=== PATIENT | male | born 1970 | race Caucasian/White ===

== ENCOUNTER 2019-06-01 11:27 | Outpatient (CLI) | payer BC, SELFPAY ==
--- NOTE | 2019-06-01 11:29 | ECG_ITS ---
Measurements Intervals [place] Rate: 82 P: 37 MI: 134 QRS: 55 QRSD: 107 T: 34 QT: 342 QTc: 401 Interpretive Statements SINUS RHYTHM DELAYED PRECORDIAL R/S TRANSITION BORDERLINE ECG Electronically Signed On 06-01-2019 11:53:36 WATER SOFTENER SERVICE SUPERVISOR by Anshul Flores D.O.
== END 2019-06-01 11:28 | disposition home or self-care (01) ==
LOC: ANHSURGERY 11:29
PROVIDERS: PCP Family Medicine; Visit Provider Surgery
DX: Z72.0 Tobacco use (principal); R94.31 Abnormal electrocardiogram [ECG] [EKG]
CPT/HCPCS: 93005

== ENCOUNTER 2019-06-11 00:06 | Day surgery (SDC) | payer BC, SELFPAY ==
[2019-05-28 15:49] VITALS: BMI 28.2
--- NOTE | 2019-06-11 07:24 | PM.SD ---
Same Day Admit/Disch: HPI History of Present Illness Chief complaint: Right Inguinal Hernia Narrative: Darren Rosa is a 48 year old male Who noticed right hip and groin pain back in January. Subsequently he noticed some bulging in the right groin area. He had a CT scan of the pelvis which showed a small right inguinal hernia containing fat. He was seen in the office and found to have a right inguinal hernia on exam. He is taken to surgery now for right inguinal hernia repair. [facility], [facility] Past Medical History Medical History Jackson esophagus History of blood transfusion History of stomach ulcers Ulcer Surgical History Surgical History Hx of cholecystectomy Hx of gastrostomy Family History Family History Father Hypertension Family history of diabetes mellitus in first degree relative Family history of coronary artery disease Cancer Other Cerebrovascular accident Family history of heart disease in male family member before age 55 Social History Social History Smoking status: Current every day smoker Second hand tobacco smoke exposure: Yes Additional smoking assessment comments: Smoke for 30 years Alcohol intake: current Substance use: never Additional living arrangements comments: Lisa Bray Additional occupation/education comments: [employer] Same Day Admit/Disch: Med Pre-admit Medications Home Medications Medication Instructions Recorded Confirmed Type butalbital 50 mg-acetaminophen 325 1 cap PO Q4H PRN 02/20/19 05/28/19 History mg-caffeine 40 mg-codeine 30 mg cap testosterone cypionate 100 mg/mL 100 mg IM WEEKLY #10 ml 04/06/19 06/11/19 Rx intramuscular oil ketorolac 10 mg PO Q6H 4 Days #16 tablet 06/11/19 Rx oxycodone-acetaminophen 0.5 - 1 tablet PO Q6H PRN #12 06/11/19 Rx tablet Exam Const: General: comfortable, no acute distress, alert and awake HENMT: Head: normocephalic and atraumatic Mouth: Yes Normal oral and palatal mucosa present Eyes: Conjunctivae: conjunctivae normal Pupils: Equal, round and reactive pupils present EOM: EOMs intact bilaterally Neck: Neck: normal visual inspection, no lymphadenopathy and nontender Resp: Effort & Inspection: normal respiratory effort Auscultation: clear to auscultation bilaterally Cardio: Rate: regular rate Rhythm: regular rhythm Heart sounds: no gallops, no murmurs and no rubs GI: Inspection: non-distended GI Palp: Yes Soft to palpation, No Tenderness to palpation present (GI), No Hepatomegaly present and No Splenomegaly present : Male General Exam: Yes hernia ( Right inguinal bulge, pulses with cough, reducible.) Penis: Yes normal penis Scrotum: scrotum normal Testes: Testes normal Skin: Lesions: no lesions Rashes: no rashes Neuro: General: no focal motor deficits and CN's II-XI intact bilaterally Cranial nerves: Yes Equal, round and reactive pupils present, Yes Bilaterally intact EOM present, Yes facial symmetry and Yes Midline tongue present Speech: normal speech Motor exam (neuro): 5/5 motor strength present throughout and Motor abnormalities not present Extrem: General: no clubbing, cyanosis or edema and edema Psych: Affect: normal affect Thought process: Normal thought process present Insight: Good insight present (Psych) DS: Summary Time Spent with Patient Time attestation: Total time spent providing and/or coordinating discharge services: DS: Diagnosis Admitting Diagnosis Admitting Diagnosis: Right inguinal hernia Discharge Diagnosis (1) Right inguinal hernia: Code(s): K40.90 - Unilateral inguinal hernia, without obstruction or gangrene, not specified as recurrent Status: Chronic Assessment and Plan: after discussion,
[2019-06-11 08:38] VITALS: BP 157/92; PULSE 81; RESP 16; TEMP 36.9; O2SAT 98
[2019-06-11] MEDS: LACTATED RINGERS 1,000 ML 30 ML IV CONT ×2 (08:55→11:49)
--- NOTE | 2019-06-11 09:12 | WPDANESEPPF ---
Anes - Initial Pre Proc Eval Procedure: Operation Date: 06/11/19 10:30 Proposed Procedures p Right Inguinal Hernia Repair - Mau Salgado MD Date/Time: 06/11/19 09:12 Surgeon: Mau Salgado MD Pre Op Diagnosis: Right Inguinal Hernia Patient Data Age: 48 Gender: M Height: 6 ft Weight: 95.5 kg Last Vital Signs Temp 36.9 C 06/11/19 08:38 Pulse 81 06/11/19 08:38 Resp 16 06/11/19 08:38 BP 157/92 H 06/11/19 08:38 Pulse Ox 98 06/11/19 08:38 Allergies Allergy/AdvReac Type Severity Reaction Status Date / Time No Known Allergies Allergy Verified 06/11/19 08:43 Home Medications Medication Instructions Recorded Confirmed Type butalbital 50 mg-acetaminophen 325 1 cap PO Q4H PRN 02/20/19 05/28/19 History mg-caffeine 40 mg-codeine 30 mg cap testosterone cypionate 100 mg/mL 100 mg IM WEEKLY #10 ml 04/06/19 06/11/19 Rx intramuscular oil Patient hx anesthesia problems: none Family hx anesthesia problems: none PMFSH Past Medical History Medical History Jackson esophagus History of blood transfusion History of stomach ulcers Ulcer Surgical History Surgical History Hx of cholecystectomy Hx of gastrostomy Family History Family History Father Hypertension Family history of diabetes mellitus in first degree relative Family history of coronary artery disease Cancer Other Cerebrovascular accident Family history of heart disease in male family member before age 55 Social History Social History Smoking status: Current every day smoker Second hand tobacco smoke exposure: Yes Additional smoking assessment comments: Smoke for 30 years Alcohol intake: current Substance use: never Additional living arrangements comments: Lisa Bray Additional occupation/education comments: [employer] Anes - Eval Final PreProcedure Day of Procedure 06/11/19 09:12 Patient weight: overweight Heart: regular rate and rhythm Lungs: decreased breath sounds Airway: Mallampati scale class II Neurological: alert and oriented Last oral intake: >/= 8 hours ASA classification: III Emergent: no Anesthetic plan: proceed Anesthesia type and monitoring: general GIVS and standard monitoring Informed Consent: The patient's anesthetic plan and its attendant risks and benefits were discussed with the patient/family/POA. Questions were solicited and answers provided to the satisfaction of the patient/family/POA.
[2019-06-11] MEDS: ceFAZolin 2 GM/D5W 50 ML 2 GM/50 ML BAG IVPB (10:33)
[2019-06-11] MEDS: KETOROLAC 30 MG/ML VIAL (*BKC) IV PUSH (10:54)
--- NOTE | 2019-06-11 11:46 | PM.PROC ---
Procedure Note - Detailed Date of procedure: 06/11/19 Pre-op diagnosis: Right Inguinal Hernia Right inguinal hernia Post-op diagnosis: other (Direct hernia) Procedure performed: Repair of Right inguinal hernia Description of procedure: The patient was taken to surgery and IV sedation was administered. The right groin and genitalia were prepped and draped. Proposed incision was marked on the skin. Local was infiltrated into the skin and the deeper subcutaneous tissues. Incision was made and deepened through the subcutaneous. Crossing veins were cauterized and divided. Dissection was carried through Osiris's fascia down to the external oblique aponeurosis. The aponeurosis was exposed as was the external ring. Additional local anesthesia was infiltrated deep to the aponeurosis in the area of the spermatic cord and inguinal canal contents. The aponeurosis was opened laterally and extended medially through the external ring. The leaves of the aponeurosis were dissected free from the spermatic cord. The ileoinguinal nerve was carefully preserved throughout the dissection and was left attached to the spermatic cord. The cord was then mobilized medially on a Pablo drain. The cord was dissected back to the internal ring. Dissection was then carried out the hernia sac from the cord. This was a direct hernia with a wide base. It occupied most of the direct space. It was dissected back to its neck. I also dissected in the spermatic cord looking for an indirect hernia. None was found. I proceeded with a Bassini repair to reconstruct the entire inguinal canal floor. The repair was done with interrupted 0 Ethibond suture. This started medially, suturing the pubic tubercle to the transversalis fascia. Then, proceeding laterally, the transversalis fascia was sutured to the reflection of the inguinal ligament. The internal ring was reconstructed such that it would barely admit the tip of a clamp. The cord and ileoinguinal nerve were then placed back in the inguinal canal. The external oblique aponeurosis was closed with interrupted 3 0 Vicryl suture. Osiris's fascia was closed with interrupted 3 0 Vicryl suture. The subcutaneous was closed with interrupted 4 0 Vicryl suture. Four 0 Vicryl subcuticular skin sutures were placed. The skin was closed finally with a running 4 0 Monocryl skin suture. The wound was dressed with Exofin surgical adhesive. The patient was awakened and taken to recovery in good condition. Sponge and needle counts were correct x2. Anesthesia: MAC and local (0.5% Marcaine with Exparel) Surgeon: Mau Salgado MD Auto Customize Painter: Keiko Aldana Estimated blood loss (mL): 5 Drains: No Packing: No Pathology: none sent Complications: None Condition: stable Disposition: PACU Findings: Direct inguinal hernia.
[2019-06-11 11:49] VITALS: BP 146/87; PULSE 78; RESP 16; O2SAT 98
[2019-06-11 12:15] VITALS: BP 147/73; PULSE 74; RESP 16
[2019-06-11 12:35] VITALS: BP 164/57; PULSE 76; RESP 16
== END 2019-06-11 12:35 | disposition home or self-care (01) ==
PROVIDERS: PCP Family Medicine; Visit Provider Surgery
PROC: (CPT 49505; principal; 2019-06-11 10:30)
DX: K40.90 Unilateral inguinal hernia, without obstruction or gangrene, not specified as recurrent (principal); G47.33 Obstructive sleep apnea (adult) (pediatric); K21.9 Gastro-esophageal reflux disease without esophagitis; Z87.11 Personal history of peptic ulcer disease; Z72.0 Tobacco use
CPT/HCPCS: 49505; A9270; C9290; J0131; J0690; J1100; J1885; J2250; J2405; J2704; J3010; J7120

== ENCOUNTER 2020-02-23 11:20 | Outpatient (CLI) | payer BC, SELFPAY ==
--- NOTE | ~2020-02-23 | XR_ITS ---
EXAMINATION: XR knee RT 3V DATE: 02/23/2020 11:37 INDICATION: Right knee pain. TECHNIQUE: 3 views of right knee were obtained. COMPARISON: None. FINDINGS: Bone alignment is normal. No fracture. There is mild osteoarthritis of medial and patellofe moral compartments characterized by tiny marginal osteophytes. No knee joint effusion. IMPRESSION: 1. Mild right knee osteoarthritis. Reviewed, dictated and finalized at location A. [facility] [employer]
== END 2020-02-23 11:21 | disposition home or self-care (01) ==
PROVIDERS: PCP Family Medicine; Visit Provider Nurse Practitioner Family
DX: M25.561 Pain in right knee (principal); M17.11 Unilateral primary osteoarthritis, right knee
CPT/HCPCS: 73562

== ENCOUNTER 2020-03-02 07:43 | Outpatient (CLI) | payer BC, SELFPAY ==
--- NOTE | ~2020-03-02 | MR_ITS ---
EXAMINATION: MR knee RT wo con DATE: 03/02/2020 08:50 INDICATION: Right knee pain. TECHNIQUE: Magnetic resonance imaging (MRI) of the right knee was performed without intravenous contr ast. Sequences included axial PD-weighted FS FSE, coronal PD-weighted FSE and PD-weighted FS FSE, sag ittal PD-weighted FSE, and sagittal T2-weighted FS FSE. COMPARISON: Right knee radiographs 02/23/2020 FINDINGS: Medial compartment: Medial meniscus is normal. Medial compartment cartilage is normal. Lateral compartment: Lateral meniscus is normal. There is cartilage surface irregularity of tibial condyle and femoral con dyle. Patellofemoral compartment: There is deep partial thickness cartilage loss of patellar medial facet with mild subchondral edema-l lorena marrow signal intensity. There is cartilage surface irregularity of patellar lateral facet and tr ochlea. Ligaments and tendons: The anterior and posterior cruciate ligaments are normal. There is a sprain of medial collateral liga ment characterized by thickening and increased signal intensity proximally and surrounding edema. The re are changes of prior sprain of fibular collateral ligament characterized by increased signal inten sity. There is mild patellar tendinopathy. Fluid: There is a small knee joint effusion. There is edema of the suprapatellar fat pad. There is mild prep atellar and superficial infrapatellar bursitis. IMPRESSION: 1. Moderate chondrosis of patellofemoral compartment and mild chondrosis of lateral compartment. 2. Grade 2 sprain of medial collateral ligament. 3. Small knee joint effusion. Reviewed, dictated and finalized at location A. [facility] IMPRESSION: 1. Moderate chondrosis of patellofemoral compartment and mild chondrosis of lat eral compartment. 2. Grade 2 sprain of medial collateral ligament. 3. Small knee joint effusion.
== END 2020-03-02 07:44 | disposition home or self-care (01) ==
PROVIDERS: PCP Family Medicine; Visit Provider Nurse Practitioner Family
DX: M25.361 Other instability, right knee (principal); S83.411A Sprain of medial collateral ligament of right knee, initial encounter; M25.461 Effusion, right knee
CPT/HCPCS: 73721

== ENCOUNTER 2020-09-26 10:02 | Outpatient (CLI) | payer BC, SELFPAY ==
--- NOTE | ~2020-09-26 | US_ITS ---
EXAMINATION: US right upper quadrant DATE: 09/26/2020 11:06 INDICATION: Other specific abnormal findings of blood chemistry. TECHNIQUE: Multiple grayscale and Doppler ultrasound images of the abdomen were obtained. COMPARISON: CT abdomen and pelvis 09/04/2015 FINDINGS: The visualized portions of the head of the pancreas are normal. There is diffuse hepatic st eatosis. No liver surface nodularity. There is normal flow in main portal vein. The gallbladder is ab sent. The common duct is normal and measures 6 mm. IMPRESSION: 1. Diffuse hepatic steatosis. Reviewed, dictated and finalized at location A.
== END 2020-09-26 10:03 | disposition home or self-care (01) ==
PROVIDERS: PCP Family Medicine; Visit Provider Family Medicine
DX: R79.89 Other specified abnormal findings of blood chemistry (principal); K76.0 Fatty (change of) liver, not elsewhere classified
CPT/HCPCS: 76705

== ENCOUNTER → 2021-09-01 02:15 | Outpatient (CLI) | payer BC, SELFPAY ==
[2021-09-01 12:33] LABS: Influenza A QL RT-PCR Negative (Negative); Influenza B QL RT-PCR Negative (Negative); SARS-CoV-2 RNA PCR Negative
== END ==
PROVIDERS: PCP Family Medicine; Visit Provider Nurse Practitioner Family
DX: Z20.822 Contact with and (suspected) exposure to COVID-19 (principal)
CPT/HCPCS: 87502; C9803; U0003; U0005

== ENCOUNTER 2021-10-12 01:22 | Day surgery (SDC) | payer BC, SELFPAY ==
[2021-10-06 10:36] VITALS: BMI 27.8
--- NOTE | 2021-10-06 10:44 | PC.NURSE ---
Report to the Outpatient Waiting Room, entrance under the green pavilion located off [facility], at time 1100 on date 10/12/21. OR Time: 1300. - You and your visitor will be asked a series of questions to screen for COVID 19 for your protection. - Only one visitor is allowed at this time. - The patient visitor is requested to leave or wait in car when not with patient. - A mask is required within the hospital. Patients may have clear liquids (water, carbonated beverages, clear teas, apple juice) until 3 hours prior to surgery with a maximum of 20 ounces. - No food from midnight until time of surgery Take the following medications with a SIP of water the morning of surgery: NONE Medications to discontinue per physician: N/A Date to take last dose: N/A Please no make-up, nail british, hairspray, perfume, deodorant, or body powder the day of surgery. No jewelry (including any body piercings) or valuables the day of surgery, leave them at home. Please take a shower or bath the night before, or the morning of, surgery with an antibacterial soap. Wear comfortable, loose fitting clothing. HIBICLENS SHOWER - Jewelry must be removed prior to entering the operating room. Rings and piercings that are not removed may be cut off. - The hospital will not accept responsibility for valuables. - Please leave all valuables, including medications, at home the day of surgery. If you are going home after surgery, a licensed truck driver salesperson must drive you home. - NO public transportation without another adult. - We recommend that an adult stay with you for 24 hours following discharge. - We also recommend that you do not drive, make important decision, drink alcoholic beverages, or take any drugs that were not prescribed by your health care provider for at least 24 hours after your discharge time. Follow any additional instructions given to you from your surgeon. If you or anyone in your household have experienced Covid symptoms in the past week, please notify your surgeon or the nurse liaison at the phone number below for possible testing. Telephone instructions given to PT - BRISA LEWIS and asked if any additional questions and then verbalized understanding. Patient advised to call surgeon office or pre surgery nurse liaison [phone] if any additional questions.
--- NOTE | 2021-10-11 13:32 | WPDANESEPPF ---
Anes - Initial Pre Proc Eval Procedure: Operation Date: 10/12/21 12:00 Proposed Procedures p Repair Periumbilical Incisional Hernia with Mesh - Mau Salgado MD Date/Time: 10/11/21 13:32 Surgeon: Mau Salgado MD Pre Op Diagnosis: incisional hernia Patient Data Age: 51 Gender: M Height: 1.83 m Weight: 93 kg Allergies Allergy/AdvReac Type Severity Reaction Status Date / Time No Known Allergies Allergy Verified 10/12/21 09:48 Home Medications Medication Instructions Recorded Confirmed Type needle (disp) 23 gauge 23 gauge x #10 ea 03/13/21 10/06/21 Rx 1 (BD PrecisionGlide Non-Sterile) syringe with needle 3 mL 20 gauge See Rx Instructions .Route 03/13/21 10/06/21 Rx x 1 (BD Luer-Carolyn Syringe) .COMPLEX #10 ea testosterone cypionate 200 mg/mL 200 mg IM WEEKLY #10 mL 10/05/21 10/12/21 Rx intramuscular oil Patient hx anesthesia problems: none Family hx anesthesia problems: none Results Review: All pre-operative results and documents have been reviewed as part of the pre-operative evaluation. [facility] Past Medical History Medical History (Updated 10/11/21 @ 13:33 by Albino Silva DO) Jackson esophagus Hepatic steatosis History of blood transfusion History of stomach ulcers Mixed hyperlipidemia MORRIS (obstructive sleep apnea) Ulcer Surgical History Surgical History History of right inguinal hernia repair 06/11/2019 Hx of cholecystectomy Hx of gastrostomy Family History Family History Father Hypertension Family history of diabetes mellitus in first degree relative Family history of coronary artery disease Cancer Other Cerebrovascular accident Family history of heart disease in male family member before age 55 Social History Social History Social History: Single Smoking packs per day: 1 Smoking cigarettes per day: 20.0 Years smoked: 30 Smoking pack-years: 30.00 Smoking status: Current every day smoker Tobacco type: cigarettes Second hand tobacco smoke exposure: Yes Additional smoking assessment comments: Smoke for 30 years Alcohol intake: current Drinks per week: 24 Alcohol use details: occasional Substance use: never Substance use type: does not use Living arrangements: alone Additional living arrangements comments: Lisa Ramirezkelson Additional occupation/education comments: [employer] Gender identity (if verbalized by the patient): Male Sexual Orientation (if Verbalized by the Patient): Straight or Heterosexual Spiritual care concerns: No Anes - Eval Final PreProcedure Day of Procedure 10/11/21 13:32 Patient weight: overweight Heart: regular rate and rhythm Lungs: clear to auscultation Airway: Mallampati scale class II Neurological: alert and oriented Last oral intake: >/= 8 hours ASA classification: III Emergent: no Anesthetic plan: proceed Anesthesia type and monitoring: general GIVS and standard monitoring Results Review: All pre-operative results and documents have been reviewed as part of the pre-operative evaluation. Informed Consent: The patient's anesthetic plan and its attendant risks and benefits were discussed with the patient/family/POA. Questions were solicited and answers provided to the satisfaction of the patient/family/POA.
[2021-10-12] MEDS: ACETAMINOPHEN 500 MG TABLET 1000 MG PO (09:50)
[2021-10-12] MEDS: KETOROLAC 15 MG/ML VIAL (*BKC) IV PUSH (10:13)
[2021-10-12] MEDS: LACTATED RINGERS 1,000 ML 30 ML IV CONT (10:13)
[2021-10-12 10:14] VITALS: BP 147/92; PULSE 72; RESP 16; TEMP 37; O2SAT 98
--- NOTE | 2021-10-12 11:52 | WPDHPUPDATE1 ---
History and Physical Update Update Date/Time: 10/12/21 11:52 History and Physical has been reviewed, including an updated exam of the patient. There are NO changes in the patient's condition. Risks, benefits, and alternatives have been discussed and questions answered. Patient agrees to proceed with procedure.
[2021-10-12] MEDS: ceFAZolin 2 GM/D5W 50 ML 2 GM/50 ML BAG IVPB (12:02)
[2021-10-12] MEDS: BUPIVACAINE/EPINEPHRINE 0.25% 50 ML VIAL INFILTRATE (12:25)
[2021-10-12 13:05] VITALS: BP 139/82; PULSE 73; RESP 16; O2SAT 98
--- NOTE | 2021-10-12 13:12 | P.OP_ITS ---
Procedure Note - Detailed Date of Procedure 10/12/21 Pre-op Diagnosis incisional hernia Post-op Diagnosis Same Procedure Performed Repair of ventral incisional hernia with mesh Surgeon Mau Salgado MD Supervisor Sewing Room Bonita [employer]MENTS BUSINESS INFORMATION ANALYST Anesthesia General (G IV S) and Local (0.25% bupivacaine with epinephrine) Indications Patient underwent laparoscopic gastric resection for ulcer disease at an outside hospital. He had an extraction site incisional hernia just above the umbilicus in the midline. He is taken to surgery now for repair Findings Hernia defect was about 1 cm in diameter. I was able to put a finger in the abdomen and check the rest of the incision scar. I was not able to palpate any additional hernias. Description of Procedure Patient was taken to surgery and anesthesia was introduced. The abdomen is prepped and draped. Local anesthesia was infiltrated over the old scar in the abdominal midline just above the umbilicus. The subcu and fascia were infiltrated as well. Incision was made at the lower 3/4 of the old incision. Dissection was carried down through the subcutaneous. The hernia sac was found it was carefully dissected free from the subcutaneous tissue. A couple of old Ethibond suture were removed from the previous repair at the edges of the hernia defect. The sac was dissected back to the fascial defect. Additional local was infiltrated. Hernia sac was amputated and discarded. A small 1 cm defect was left in place. The defect was oriented transversely and was even smaller in a craniocaudad dimension, about 3 mm. I was able to place a finger in the abdomen and checked for any additional hernias. I was not able to feel any other hernias. A 6.[address] mesh quinault was chosen. It was folded and placed in the defect. It was centered appropriately. Cranial and caudal transfascial sutures were placed with 0 Ethibond. These sutures were placed in such a fashion as they would advance the edges of the hernia defect towards 1 another when they were tied. Time the sutures had the desired effect. I then cut the straps to the Ventralex ST mesh. The defect itself was closed with [id number] mattress sutures of 0 Ethibond. Each of these sutures incorporated bit of mesh as well. Additional local was infiltrated all around the area of the repair. The subcutaneous was then closed with interrupted 3-0 Vicryl suture. The skin was closed with 4-0 Vicryl subcuticular interrupted suture. The wound was dressed with Exofin surgical adhesive. Patient was awakened and taken to room outpatient surgery in good condition. Sponge needle counts were correct x2. Implants Ventralex ST hernia mesh 6.4 cm Estimated Blood Loss -5 Drains No Packing No Pathology None sent Complications No immediate complications Condition Stable Disposition Same day [facility] Billing Surgery - Charge Forward: Surgery Billing (Repair ventral incisional hernia with mesh)
[2021-10-12 13:35] VITALS: BP 155/108; PULSE 69; RESP 16
== END 2021-10-12 13:55 | disposition home or self-care (01) ==
PROVIDERS: PCP Family Medicine; Visit Provider Surgery
PROC: (CPT 49560; principal; 2021-10-12 12:00)
DX: K43.2 Incisional hernia without obstruction or gangrene (principal); Z87.11 Personal history of peptic ulcer disease; Z90.3 Acquired absence of stomach [part of]; G47.33 Obstructive sleep apnea (adult) (pediatric); K76.0 Fatty (change of) liver, not elsewhere classified; E78.2 Mixed hyperlipidemia; F17.210 Nicotine dependence, cigarettes, uncomplicated
CPT/HCPCS: 49560; 49568; A9270; C1781; J0690; J1100; J1170; J1885; J2250; J2405; J2704; J3010; J7120

== ENCOUNTER 2021-10-28 01:20 | Emergency (ER) | payer BC, SELFPAY ==
[2021-10-28 01:21] VITALS: BP 152/85; PULSE 87; RESP 18; TEMP 36.1; O2SAT 98
[2021-10-28 01:28] VITALS: BP 136/82; PULSE 85; RESP 20; TEMP 36.4; O2SAT 100
--- NOTE | 2021-10-28 01:34 | ED.SKABFB ---
HPI - Skin/Abscess/Foreign Bdy General Chief complaint: Skin/Abscess/Foreign Body Stated complaint: left ankle insect bite Time Seen by Provider: 10/28/21 01:26 History of Present Illness HPI narrative: 51-year-old male presents the emergency room for evaluation of an insect bite to his left foot. Patient states that approximately 230 this afternoon he was stung by an insect. Patient noted swelling to his foot accompanied with itching. Related Data Allergies Allergy/AdvReac Type Severity Reaction Status Date / Time No Known Allergies Allergy Verified 10/26/21 09:20 Review of Systems Review of Systems: CONSTITUTIONAL: Denies fever, chills, or sweats. EYES: Denies visual changes, redness, or discharge. ENT: Denies rhinorrhea, congestion, sore throat, or otalgia. CARDIOVASCULAR: Denies chest pain, palpitations, or edema. RESPIRATORY: Denies cough or dyspnea. GASTROINTESTINAL: Denies abdominal pain, nausea, vomiting, or diarrhea. GENITOURINARY: Denies dysuria or hematuria. SKIN: Insect bite left ankle MUSCULOSKELETAL: Denies back pain, joint pain, or myalgia. NEUROLOGIC: Denies headache, numbness, dizziness, or weakness. PSYCHIATRIC: Denies anxiety or depression. [facility] Past Medical History Medical History Jackson esophagus Hepatic steatosis History of blood transfusion History of stomach ulcers Mixed hyperlipidemia MORRIS (obstructive sleep apnea) Ulcer Surgical History Surgical History History of right inguinal hernia repair 06/11/2019 Hx of cholecystectomy Hx of gastrostomy Family History Family History Father Hypertension Family history of diabetes mellitus in first degree relative Family history of coronary artery disease Cancer Other Cerebrovascular accident Family history of heart disease in male family member before age 55 Social History Social History Social History: Single Smoking packs per day: 1 Smoking cigarettes per day: 20.0 Years smoked: 30 Smoking pack-years: 30.00 Smoking status: Current every day smoker Tobacco type: cigarettes Second hand tobacco smoke exposure: Yes Additional smoking assessment comments: Smoke for 30 years Alcohol intake: current Drinks per week: 24 Alcohol use details: occasional Substance use: never Substance use type: does not use Additional living arrangements comments: Lisa Bray Additional occupation/education comments: [employer] Gender identity (if verbalized by the patient): Male Sexual Orientation (if Verbalized by the Patient): Straight or Heterosexual Spiritual care concerns: No Exam Narrative: GENERAL: Well-appearing, well-nourished, no physical limitations, and in no acute distress. HEAD: Normocephalic, atraumatic. EYES: Conjunctivae normal, PERRLA and EOMI. CHEST: Clear to auscultation. No respiratory distress. No wheezes rales or rhonchi. No tenderness. HEART: Regular rate and rhythm. No murmur heard. Normal peripheral pulses. EXTREMITIES: Normal range of motion. No edema. No clubbing or cyanosis SKIN: Left foot: Santosh noted to the lateral malleolus, diffuse soft tissue swelling to the left foot. Distal pulses are present. No erythema, no lymphangitis NEURO: No focal deficits. Alert and oriented x3. MAEW. CN's II-XI intact bilaterally, normal gait PSYCH: Cooperative. Normal mood and affect. Course Vital Signs Vital signs: Vital Signs Temperature 36.1 C L 10/28/21 01:21 Pulse Rate 87 10/28/21 01:21 Respiratory Rate 18 10/28/21 01:21 Blood Pressure 152/85 H 10/28/21 01:21 Pulse Oximetry 98 10/28/21 01:21 Oxygen Delivery Room Air 10/28/21 01:21 Temperature 36.4 C 10/28/21 01:28 Pulse Rate 85 10/28/21 01:28 Respiratory Rate 20 10/28/21 01:28
[2021-10-28] MEDS: FAMOTIDINE 20 MG/2 ML VIAL IV PUSH (01:48)
[2021-10-28] MEDS: diphenhydrAMINE HCl INJ 50 MG/ML VIAL IV PUSH (01:48)
[2021-10-28] MEDS: methylPREDNISolone SOD SUCC 125 MG VIAL IV PUSH (01:48)
[2021-10-28] MEDS: ACETAMINOPHEN 500 MG TABLET 1000 MG PO (02:08)
== END 2021-10-28 02:27 | disposition home or self-care (01) ==
LOC: ANHED 01:42
PROVIDERS: Emergency Provider Nurse Practitioner Family; PCP Family Medicine
DX: S90.862A Insect bite (nonvenomous), left foot, initial encounter (principal); K22.70 Barrett's esophagus without dysplasia; E78.2 Mixed hyperlipidemia; G47.33 Obstructive sleep apnea (adult) (pediatric); F17.210 Nicotine dependence, cigarettes, uncomplicated; W57.XXXA Bitten or stung by nonvenomous insect and other nonvenomous arthropods, initial encounter
CPT/HCPCS: 96374; 96375; 99284; A9270; J1200; J2930

== ENCOUNTER 2021-11-08 10:17 | Emergency (ER) | payer BC, SELFPAY ==
[2021-11-08 10:25] VITALS: BP 131/82; PULSE 82; RESP 16; TEMP 36.8; O2SAT 100
--- NOTE | 2021-11-08 10:33 | ED.ABDPAIN ---
HPI - Abdominal Pain General Chief Complaint: Abdominal Pain Stated Complaint: Abdominal Pain Time Seen by Provider: 11/08/21 10:33 Source: patient and RN notes reviewed History of Present Illness HPI narrative: Patient is a 51-year-old male who presents the urgent care with complaints of abdominal cramping, diarrhea. Patient states that on Saturday it started after eating fish at [place]. Patient states that he was also vomiting on Saturday with a low-grade fever for 2 days which is since resolved. Patient denies of any nausea or vomiting at this time. States he has had approximately 12-15 loose stools in the last 24 hours. Patient reports of a headache today and believes he may be dehydrated. Patient has been increasing his water intake and using Imodium. Denies of any history of abdominal issues. Denies any urinary symptoms with the exception of right flank pain. No acute distress noted. Patient aware of the plan of care. Some parts of this dictation were generated by voice recognition software and may contain typographical and/or grammatical inaccuracies. Related Data Allergies Allergy/AdvReac Type Severity Reaction Status Date / Time No Known Allergies Allergy Verified 11/08/21 10:41 Review of Systems Review of Systems: CONSTITUTIONAL: Denies fever, chills, or sweats. EYES: Denies visual changes, redness, or discharge. ENT: Denies rhinorrhea, congestion, sore throat, or otalgia. CARDIOVASCULAR: Denies chest pain, palpitations, or edema. RESPIRATORY: Denies cough or dyspnea. GASTROINTESTINAL: Reports of abdominal cramping, nausea, vomiting which is since resolved and consistent diarrhea GENITOURINARY: Denies dysuria or hematuria. SKIN: Denies rash or itching. MUSCULOSKELETAL: Reports of left flank pain NEUROLOGIC: Denies headache, numbness, or weakness. All other systems reviewed are negative, except as documented in HPI. [facility] Past Medical History Medical History Jackson esophagus Hepatic steatosis History of blood transfusion History of stomach ulcers Mixed hyperlipidemia MORRIS (obstructive sleep apnea) Ulcer Surgical History Surgical History History of right inguinal hernia repair 06/11/2019 Hx of cholecystectomy Hx of gastrostomy Family History Family History Father Hypertension Family history of diabetes mellitus in first degree relative Family history of coronary artery disease Cancer Other Cerebrovascular accident Family history of heart disease in male family member before age 55 Social History Social History Social History: Single Smoking packs per day: 1 Smoking cigarettes per day: 20.0 Years smoked: 30 Smoking pack-years: 30.00 Smoking status: Current every day smoker Tobacco type: cigarettes Second hand tobacco smoke exposure: Yes Additional smoking assessment comments: Smoke for 30 years Alcohol intake: current Drinks per week: 24 Alcohol use details: occasional Substance use: never Substance use type: does not use Additional living arrangements comments: Lisa Bray Additional occupation/education comments: [employer] Gender identity (if verbalized by the patient): Male Sexual Orientation (if Verbalized by the Patient): Straight or Heterosexual Spiritual care concerns: No Comments At the time of my signature, I reviewed and agree with the nursing past medical, surgical, social, and family history. There is no relevant family history pertinent to the patient complaint. Exam Narrative: GENERAL: This is a well-nourished, well-developed patient, in no apparent distress. HEAD: normocephalic, atraumatic. EYES: PERRL. Sclera clear/white. Vision is grossly intact. EARS: External ears normal NOSE: External nose
== END 2021-11-08 11:27 | disposition home or self-care (01) ==
PROVIDERS: Emergency Provider Nurse Practitioner Family; PCP Family Medicine
DX: R19.7 Diarrhea, unspecified (principal); F17.210 Nicotine dependence, cigarettes, uncomplicated; K22.70 Barrett's esophagus without dysplasia; E78.2 Mixed hyperlipidemia; G47.33 Obstructive sleep apnea (adult) (pediatric); K76.0 Fatty (change of) liver, not elsewhere classified
CPT/HCPCS: 81003; 99212; G0463

== ENCOUNTER 2021-11-10 15:09 | Outpatient (CLI) | payer BC, SELFPAY ==
[2021-11-10 18:52] LABS: Toxigenic C. Diff NEGATIVE (NEGATIVE)
== END 2021-11-10 15:10 | disposition home or self-care (01) ==
LOC: ANHLAB 15:11
PROVIDERS: PCP Family Medicine; Visit Provider Physician Assistant
DX: R19.7 Diarrhea, unspecified (principal)
CPT/HCPCS: 87045; 87077; 87177; 87186; 87209; 87427; 87493; 89055

== ENCOUNTER 2022-05-10 07:15 | Emergency (ER) | payer BC, SELFPAY ==
--- NOTE | ~2022-05-10 | CT_ITS ---
CT Abdomen and Pelvis with contrast. History: Abdominal pain. Spiral CT of the abdomen and pelvis was performed after the administration of intravenous contrast. 1 00 cc of Omnipaque 350 was administered intravenously without complication. Dose reduction technique was used on this scan by utilizing automated exposure control and iterative reconstruction technique. The dose-length product (DLP) was 535.97 mGy-cm. COMPARISON: 04/09/2019 Findings: Scans through the lung bases demonstrate mild atelectatic change. The liver, spleen, pancreas, adrenals and kidneys are within normal limits. Cholecystectomy clips are present. There are endovascular coils in the region of the pancreatic head. No evidence of aortic an eurysm. No lymphadenopathy is seen. There is no evidence of bowel obstruction. There is no evidence to suggest acute appendicitis or dive rticulitis. Images through the pelvis were performed. Urinary bladder unremarkable. Prostate gland and seminal ve sicles are unremarkable. No ascites is seen. Impression: No acute abnormality seen. Endovascular coils near the pancreatic head. Correlate with prior procedural history. Reviewed, dictated and finalized at [facility]. [employer] Impression: No acute abnormality seen. Endovascular coils near the pancreatic head. Correlate with prior procedural hi story.
[2022-05-10 07:20] VITALS: BP 185/89; PULSE 79; RESP 15; TEMP 36.9; O2SAT 100
--- NOTE | 2022-05-10 07:27 | ED.ABDPAIN ---
HPI - Abdominal Pain General Chief Complaint: Abdominal Pain Stated Complaint: Pain in lower abdomen Time Seen by Provider: 05/10/22 07:27 Source: patient Mode of arrival: ambulatory Limitations: no limitations History of Present Illness HPI narrative: 51 years old white male drove himself to the emergency room complaining of intermittent dull aching lower abdominal for the last 2 months. Worse when he bends over, nothing make it better. 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 Patient on testosterone , no other medications. He smokes cigarettes, drinks alcohol. Related Data Allergies Allergy/AdvReac Type Severity Reaction Status Date / Time sumatriptan AdvReac Intermediate Chest Pain Verified 05/10/22 07:34 Review of Systems Review of Systems: All systems reviewed & are unremarkable except as noted in HPI and below PMFSH Past Medical History Medical History Jackson esophagus Hepatic steatosis History of blood transfusion History of stomach ulcers Mixed hyperlipidemia MORRIS (obstructive sleep apnea) Ulcer Surgical History Surgical History H/O hernia repair Repair of ventral incisional hernia with mesh 10/12/21 History of right inguinal hernia repair 06/11/2019 Hx of cholecystectomy Hx of gastrostomy Family History Family History Father Hypertension Family history of diabetes mellitus in first degree relative Family history of coronary artery disease Cancer Other Cerebrovascular accident Family history of heart disease in male family member before age 55 Social History Social History Social History: Single Smoking packs per day: 1 Smoking cigarettes per day: 20.0 Years smoked: 30 Smoking pack-years: 30.00 Smoking status: Current every day smoker Tobacco type: cigarettes Second hand tobacco smoke exposure: Yes Additional smoking assessment comments: Smoke for 30 years Alcohol intake: current Drinks per week: 24 Alcohol use details: occasional Substance use: never Substance use type: does not use Living arrangements: alone Additional living arrangements comments: Lisa Bray Occupation/Education: occupation Additional occupation/education comments: [employer] Gender identity (if verbalized by the patient): Male Sexual Orientation (if Verbalized by the Patient): Straight or Heterosexual Spiritual care concerns: No Exam Narrative: General appearance: Well-developed, well-nourished, anxious Skin: Normal color Head: Normocephalic, nontraumatic Eyes: Clear conjunctiva ENT: Oropharynx normal, ears normal, nose normal Neck: Supple, nontender Chest and respiratory: Airway patent, no respiratory distress, no accessory muscle use Heart: Regular rate/rhythm Abdomen: Soft, nontender, no organomegaly, quiet bowel sounds Vascular: Normal peripheral pulses, normal capillary refill. Musculoskeletal: Normal range of motion, nontender back Neurologic: Alert and oriented ?3, WELLNESS MANAGER is normal as tested, no gross motor deficit Course Vital Signs Vital signs: Vital Signs Temperature 36.9 C 05/10/22 07:20 Pulse Rate 79 05/10/22 07:20 Respiratory Rate 15 05/10/22 07:20 Blood Pressure 185/89 H 05/10/22 07:20 Pulse Oximetry 100 05/10/22 07:20 Oxygen Delivery Room Air 05/10/22 07:20 Te
[2022-05-10] MEDS: HYDROmorphone HCL INJ (*CRX) 1 MG/ML SYR 0.5 MG IV PUSH ×2 (07:49→09:50)
[2022-05-10] MEDS: ONDANSETRON INJ 4 MG/2 ML VIAL IV PUSH (07:49)
[2022-05-10] MEDS: SODIUM CHLORIDE 0.9% IV 1,000 ML 999 ML IV CONT (07:49)
[2022-05-10 07:57] LABS: Basophils Absolute Auto 0.1 K/mm3 (0.0-0.1); Basophils Percent Auto 1.1 % (0.2-1.2); Eosinophils Absolute Auto 0.2 K/mm3 (0-0.3); Eosinophils Percent Auto 4.4 % (0-4.4); Hematocrit 44.3 % (42.0-52.0); Hemoglobin 14.7 g/dL (14.0-18.0); Immature Granulocyte Absolute 0.03 K/mm3 (0.00-0.031); Immature Granulocyte Percent A 0.6 % (0-0.5); Lymphocytes Absolute Auto 1.01 K/mm3 (0.9-3.2); Lymphocytes Percent Auto 18.6 % (18.3-44.2); Mean Corpuscular HGB Conc 33.2 g/dl (32-36); Mean Corpuscular Hemoglobin 29.2 pg (26-34); Mean Corpuscular Volume 87.9 fl (80-100); Mean Platelet Volume 10.8 fl (7.4-10.4); Monocytes Absolute Auto 0.7 K/mm3 (0.1-0.6); Monocytes Percent Auto 11.9 % (2.6-8.5); Neutrophils Absolute Auto 3.5 K/mm3 (1.3-6.7); Neutrophils Percent Auto 63.4 % (45.5-73.1); Platelet Count Result 211 k/mm3 (150-375); Red Blood Count 5.04 M/mm3 (4.6-6.20); Red Cell Distribution Width 14.5 % (11.5-14.5); White Blood Count 5.4 K/mm3 (4.5-10.0)
[2022-05-10 08:00] LABS: Appearance Urine Clear (Clear); Bilirubin Urine Negative (Negative); Blood Urine Negative (Negative); Color Urine Yellow (Yellow); Glucose Urine UA Negative (Negative); Ketones Urine Negative (Negative); Leukocyte Esterase Ur Negative LEU/UL (Negative); Nitrate Urine Negative (Negative); Protein Urine Trace mg/dL (Negative); Urobilinogen Urine 0.2 mg/dL (<2.0); pH Urine 8.5 (5.0-9.0)
[2022-05-10 08:06] LABS: Alanine Aminotransferase 41 U/L (6-50); Albumin Level 4.6 g/dL (3.5-5.1); Alkaline Phosphatase 36 U/L (38-126); Anion Gap 5 mmol/L (8-16); Aspartate Amino Transferase 48 U/L (17-59); Bilirubin,Total 0.4 mg/dL (0.2-1.3); Blood Urea Nitrogen 6 mg/dL (9-20); Calcium 9.2 mg/dL (8.4-10.2); Carbon Dioxide 27 mmol/L (22-30); Chloride 102 mmol/L (98-107); Estimated CRCL calculation 76 ml/min; Estimated Glomerular Filt Rate > 60; Glucose 99 mg/dL (65-110); Lipase 233 U/L (23-300); Potassium 4.5 mmol/L (3.4-5.0); Sodium 134 mmol/L (137-145)
[2022-05-10 08:17] VITALS: BP 165/94; PULSE 75; RESP 16; O2SAT 94
[2022-05-10 09:06] LABS: Add Urine Microscopic? NO
[2022-05-10 09:12] VITALS: BP 165/94; PULSE 80; RESP 20; TEMP 36.8; O2SAT 98
[2022-05-10 09:48] VITALS: BP 151/93; PULSE 79; RESP 13; O2SAT 96
== END 2022-05-10 10:00 | disposition home or self-care (01) ==
PROVIDERS: Emergency Provider Emergency Medicine; PCP Family Medicine
DX: R10.9 Unspecified abdominal pain (principal); F17.210 Nicotine dependence, cigarettes, uncomplicated; K76.0 Fatty (change of) liver, not elsewhere classified
CPT/HCPCS: 36415; 74177; 80053; 81003; 83690; 85025; 96361; 96374; 96375; 99284; J1170; J2405; J7030; Q9967

== ENCOUNTER 2022-06-27 10:54 | Emergency (ER) | payer BC, SELFPAY ==
[2022-06-27] VITALS (19 sets, daily range): BP systolic 143–175; BP diastolic 86–108; PULSE 68–79; RESP 3–20; TEMP 36.2; O2SAT 95–100
--- NOTE | ~2022-06-27 | CT_ITS ---
Non-contrast Head CT History: Headache Technique: Axial non-contrast imaging of the brain was performed. Dose reduction technique was used on this scan by utilizing automated exposure control and iterative reconstruction technique. The dose -length product (DLP) was 605.33 mGy-cm. Findings: There is no evidence of intracranial hemorrhage, mass lesion, or acute infarct. Brain par enchyma appears normal. The ventricles and subarachnoid spaces are normal in size. The calvarium ap pears normal. The visualized paranasal sinuses and mastoid air cells are clear. Impression: No significant abnormality seen. Reviewed, dictated and finalized at location . Impression: No significant abnormality seen.
--- NOTE | 2022-06-27 11:59 | ECG_ITS ---
Measurements Intervals [place] Rate: 67 P: 13 CO: 158 QRS: 48 QRSD: 106 T: 34 QT: 371 QTc: 393 Interpretive Statements SINUS RHYTHM BORDERLINE ECG COMPARED TO ECG 06/01/2019 11:55:02 NO SIGNIFICANT CHANGES Electronically Signed On 06-27-2022 14:03:43 CDT by Anshul Flores D.O.
--- NOTE | 2022-06-27 12:21 | ED.GENADULT ---
HPI - General Adult General Chief complaint: Recheck/Abnormal Lab/Rx Stated complaint: high blood pressure Time Seen by Provider: 06/27/22 11:55 History of Present Illness HPI narrative: 51-year-old male with history of hypertension presenting to the emergency department for evaluation of elevated blood pressure with associated headache. Patient states that over the last few weeks his blood pressures have been running elevated and patient has had follow-up with his primary care physician. Patient was recently started on lisinopril but was beginning to develop a rash from this and the medication was stopped and yesterday patient was started on 5 mg of p.o. amlodipine. Patient did take his first dose yesterday afternoon. Patient woke up this morning he had a persistent headache and noticed his blood pressure was 187 systolic. Patient has not yet taken his blood pressure medication today. Patient does have a resting tremor at baseline which she states is unchanged. Patient denies any associated numbness or weakness. Patient states he was having some tingling in his hands bilaterally. Patient does report headache with some associated light sensitivity. Patient denies any associated chest pain or shortness of breath. Patient reports he is fairly active and has no exertional chest pain. Patient denies any prior history of NM but did have a stress test a few years ago that was negative Related Data Allergies Allergy/AdvReac Type Severity Reaction Status Date / Time sumatriptan AdvReac Intermediate Chest Pain Verified 06/27/22 11:03 lisinopril AdvReac Mild Fatigued Verified 06/27/22 11:03 Review of Systems Review of Systems: All systems reviewed & are unremarkable except as noted in HPI and below PMFSH Past Medical History Medical History Jackson esophagus Hepatic steatosis History of blood transfusion History of stomach ulcers Mixed hyperlipidemia MORRIS (obstructive sleep apnea) Ulcer Surgical History Surgical History H/O hernia repair Repair of ventral incisional hernia with mesh 10/12/21 History of right inguinal hernia repair 06/11/2019 Hx of cholecystectomy Hx of gastrostomy Family History Family History Father Hypertension Family history of diabetes mellitus in first degree relative Family history of coronary artery disease Cancer Other Cerebrovascular accident Family history of heart disease in male family member before age 55 Social History Social History Social History: Single Smoking packs per day: 1 Smoking cigarettes per day: 20.0 Years smoked: 30 Smoking pack-years: 30.00 Smoking status: Current every day smoker Tobacco type: cigarettes Second hand tobacco smoke exposure: Yes Additional smoking assessment comments: Smoke for 30 years Alcohol intake: current Drinks per week: 24 Alcohol use details: occasional Substance use: never Substance use type: does not use Living arrangements: alone Additional living arrangements comments: Lisa Bray Occupation/Education: occupation Additional occupation/education comments: [employer] Gender identity (if verbalized by the patient): Male Sexual Orientation (if Verbalized by the Patient): Straight or Heterosexual Spiritual care concerns: No Exam Narrative: APPEARANCE: Well appearing, no pain, no distress, well-nourished. HEAD: normocephalic, atraumatic. EYES: PERRLA/EOMI, conjunctivae clear. NOSE: Normal no drainage NECK: Supple. No adenopathy, no masses. RESPIRATORY: Airway patent, respirations nonlabored. Clear to auscultation bilaterally, no rales, rhonchi, wheezing. CARDIOVASCULAR: Regular rate and rhythm without murmurs rubs or gallops. ABDOMINAL: Soft, nontender, nondistended, normal bowel soun
[2022-06-27 12:49] LABS: Basophils Percent Auto 0.6 % (0.2-1.2); Eosinophils Absolute Auto 0.2 K/mm3 (0-0.3); Eosinophils Percent Auto 3.1 % (0-4.4); Hematocrit 45.8 % (42.0-52.0); Hemoglobin 15.1 g/dL (14.0-18.0); Immature Granulocyte Absolute 0.02 K/mm3 (0.00-0.031); Immature Granulocyte Percent A 0.4 % (0-0.5); Lymphocytes Absolute Auto 0.82 K/mm3 (0.9-3.2); Lymphocytes Percent Auto 16.9 % (18.3-44.2); Mean Corpuscular Hemoglobin 29.7 pg (26-34); Mean Corpuscular Volume 90.2 fl (80-100); Mean Platelet Volume 10.2 fl (7.4-10.4); Monocytes Absolute Auto 0.6 K/mm3 (0.1-0.6); Monocytes Percent Auto 11.7 % (2.6-8.5); Neutrophils Absolute Auto 3.3 K/mm3 (1.3-6.7); Neutrophils Percent Auto 67.3 % (45.5-73.1); Platelet Count Result 189 k/mm3 (150-375); Red Blood Count 5.08 M/mm3 (4.6-6.20); Red Cell Distribution Width 14.5 % (11.5-14.5); White Blood Count 4.9 K/mm3 (4.5-10.0)
[2022-06-27] MEDS: hydrALAZINE HCL 20 MG/ML VIAL 10 MG IV PUSH (12:54)
[2022-06-27 12:56] LABS: Appearance Urine Clear (Clear); Bilirubin Urine Negative (Negative); Blood Urine Negative (Negative); Color Urine Yellow (Yellow); Glucose Urine UA Negative (Negative); Ketones Urine Negative (Negative); Leukocyte Esterase Ur Negative LEU/UL (Negative); Nitrate Urine Negative (Negative); Protein Urine Negative (Negative); Specific Grav Ur 1.009 (1.001-1.035); pH Urine 7.5 (5.0-9.0)
[2022-06-27 12:58] LABS: Add Urine Microscopic? NO
[2022-06-27 13:00] LABS: Alanine Aminotransferase 57 U/L (6-50); Albumin Level 4.5 g/dL (3.5-5.1); Alkaline Phosphatase 33 U/L (38-126); Anion Gap 6 mmol/L (8-16); Aspartate Amino Transferase 70 U/L (17-59); Bilirubin,Total 0.6 mg/dL (0.2-1.3); Blood Urea Nitrogen 10 mg/dL (9-20); Calcium 8.7 mg/dL (8.4-10.2); Carbon Dioxide 27 mmol/L (22-30); Chloride 101 mmol/L (98-107); Estimated CRCL calculation 76 ml/min; Estimated Glomerular Filt Rate > 60; Glucose 102 mg/dL (65-110); Potassium 4.9 mmol/L (3.4-5.0); Sodium 134 mmol/L (137-145)
[2022-06-27] MEDS: amLODIPine BESYLATE 5 MG TABLET PO (14:05)
== END 2022-06-27 14:15 | disposition home or self-care (01) ==
PROVIDERS: Emergency Provider Emergency Medicine; PCP Family Medicine
DX: I10 Essential (primary) hypertension (principal); R51.9 Headache, unspecified; E78.2 Mixed hyperlipidemia; F17.210 Nicotine dependence, cigarettes, uncomplicated
CPT/HCPCS: 36415; 70450; 80053; 81003; 85025; 93005; 96365; 96375; 99284; A9270; J0131; J0360

== ENCOUNTER 2023-06-20 20:59 | Emergency (ER) | payer BC, SELFPAY ==
[2023-06-20 21:02] VITALS: BP 165/81; PULSE 90; RESP 16; TEMP 36.4; O2SAT 97
[2023-06-20 21:58] LABS: Basophils Percent Auto 0.7 % (0.2-1.2); Eosinophils Absolute Auto 0.2 K/mm3 (0-0.3); Eosinophils Percent Auto 3.3 % (0-4.4); Hematocrit 42.4 % (42.0-52.0); Hemoglobin 14.3 g/dL (14.0-18.0); Immature Granulocyte Absolute 0.02 K/mm3 (0.00-0.031); Immature Granulocyte Percent A 0.3 % (0-0.5); Lymphocytes Absolute Auto 1.13 K/mm3 (0.9-3.2); Lymphocytes Percent Auto 18.5 % (18.3-44.2); Mean Corpuscular HGB Conc 33.7 g/dl (32-36); Mean Corpuscular Hemoglobin 31.3 pg (26-34); Mean Corpuscular Volume 92.8 fl (80-100); Mean Platelet Volume 9.8 fl (7.4-10.4); Monocytes Absolute Auto 0.4 K/mm3 (0.1-0.6); Neutrophils Absolute Auto 4.3 K/mm3 (1.3-6.7); Neutrophils Percent Auto 70.2 % (45.5-73.1); Platelet Count Result 177 k/mm3 (150-375); Red Blood Count 4.57 M/mm3 (4.6-6.20); Red Cell Distribution Width 13.1 % (11.5-14.5); White Blood Count 6.1 K/mm3 (4.5-10.0)
[2023-06-20 22:14] LABS: Alanine Aminotransferase 82 U/L (6-50); Albumin Level 4.4 g/dL (3.5-5.1); Alkaline Phosphatase 33 U/L (38-126); Anion Gap 11 mmol/L (8-16); Aspartate Amino Transferase 104 U/L (17-59); Bilirubin,Total 0.5 mg/dL (0.2-1.3); Blood Urea Nitrogen 10 mg/dL (9-20); Carbon Dioxide 16 mmol/L (22-30); Chloride 97 mmol/L (98-107); Estimated CRCL calculation 64 ml/min; Estimated Glomerular Filt Rate 58; Glucose 126 mg/dL (65-110); Potassium 3.4 mmol/L (3.4-5.0); Sodium 124 mmol/L (137-145)
--- NOTE | 2023-06-21 03:14 | ED.GENADULT ---
HPI - General Adult General Chief complaint: Extremity Injury, Upper Stated complaint: R ARM INJURY Time Seen by Provider: 06/21/23 02:20 History of Present Illness HPI narrative: This is a 52-year-old male presenting for a wound check. 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 He also had a puncture from a nail. Patient was concerned because there is some erythema and streaking from the wounds. No systemic signs of illness. Unknown last tetanus Related Data Allergies Allergy/AdvReac Type Severity Reaction Status Date / Time sumatriptan AdvReac Intermediate Chest Pain Verified 06/21/23 02:05 amlodipine AdvReac Mild Swelling Verified 06/21/23 02:05 lisinopril AdvReac Mild Fatigued Verified 06/21/23 02:05 PMFSH Past Medical History Medical History Jackson esophagus Hepatic steatosis History of blood transfusion History of stomach ulcers Mixed hyperlipidemia MORRIS (obstructive sleep apnea) Ulcer Surgical History Surgical History H/O hernia repair Repair of ventral incisional hernia with mesh 10/12/21 History of right inguinal hernia repair 06/11/2019 Hx of cholecystectomy Hx of gastrostomy Family History Family History Father Hypertension Family history of diabetes mellitus in first degree relative Family history of coronary artery disease Cancer Other Cerebrovascular accident Family history of heart disease in male family member before age 55 Social History Social History Social History: Single Smoking packs per day: 1 Smoking cigarettes per day: 20.0 Years smoked: 25 Smoking pack-years: 25.00 Smoking status: Current every day smoker Tobacco type: cigarettes Second hand tobacco smoke exposure: Yes Additional smoking assessment comments: Smoke for 30 years Alcohol intake: current Alcohol use details: Pt drinks a case of beer a week. Substance use: never Substance use type: does not use Do You Feel Safe in your Home?: Yes Lack of Transportation: No Lack of Food: Never True Current Housing: I Have Housing Concerned About Future Housing: No Difficulty Paying Gas/Electric Bills: No Difficulty Paying for Meds: No Currently Unemployed: No Education: Associate Degree Difficulty w/ Childcare or Family Care: No Living arrangements: alone Occupation/Education: occupation Additional occupation/education comments: [employer] Gender identity (if verbalized by the patient): Male Sexual Orientation (if Verbalized by the Patient): Straight or Heterosexual Spiritual care concerns: No Exam Narrative: APPEARANCE: No apparent distress. Head: atraumatic. EYES: EOMI, NOSE: Atraumatic NECK: Trachea midline RESPIRATORY: No increased rate of breathing CARDIOVASCULAR: RRR, ABDOMINAL: Non-distended MUSCULOSKELETAl: No obvious deformities NEURO: Alert. Moving /4 extremities SKIN:: right forearm shows a well-healing abrasion over the volar aspect of the forearm. There is also a small well-healed punctate wound on the proximal forearm. Very mild erythema with no visible streaking on exam. PSYCHIATRIC: Normal affect Course Vital Signs Vital signs: Vital Signs Temperature 97.5 F L 06/20/23 21:02 Pulse Rate 90 06/20/23 21:02 Respiratory Rate 16 06/20/23 21:02 Blood Pressure 165/81 H 06/20/23 21:02 Pulse Oximetry 97 06/20/23 21:02 Oxygen Delivery Room Air 06/20/23 21:02 Temperature 97.5 F L 06/20/23 21:02 Pulse Rate 90 06/20/23 21:02 Respiratory Rate 16 06/20/23 21:02 Blood Pressure 165/81 H 06/20/23 21:02 Pulse Oximetry 97 06/20/23 21:02 Oxygen Delivery Room Air 06/20/23 21:02 Medical Decision Making MDM Narrative Medical decision making narr
[2023-06-21] MEDS: ceFAZolin 1 GM/NS 50 ML 1 GM/50 ML BAG IVPB (03:58)
[2023-06-21] MEDS: TETANUS,DIPHTHERIA,AC PERTUSSIS ADULT (0.5 ML) BOOSTRIX IM (03:59)
== END 2023-06-21 04:59 | disposition home or self-care (01) ==
PROVIDERS: Emergency Provider Emergency Medicine; PCP Family Medicine
DX: S50.811D Abrasion of right forearm, subsequent encounter (principal); Z23 Encounter for immunization; E78.2 Mixed hyperlipidemia; K22.70 Barrett's esophagus without dysplasia; G47.33 Obstructive sleep apnea (adult) (pediatric); F17.210 Nicotine dependence, cigarettes, uncomplicated; Z90.2 Acquired absence of lung [part of]; W31.1XXD Contact with metalworking machines, subsequent encounter
CPT/HCPCS: 36415; 80053; 85025; 87040; 90471; 90715; 96365; 99284; J0690

== ENCOUNTER 2023-12-30 12:03 | Outpatient (CLI) | payer BC, SELFPAY ==
--- NOTE | ~2023-12-30 | XR_ITS ---
Left Knee Technique: AP and lateral views were obtained. Clinical History: Pain Findings: No fracture or dislocation is seen. Osseous alignment is anatomic. Joint spaces are preserv ed without degenerative or erosive change. Soft tissues are unremarkable. No joint effusion is seen. Impression: Unremarkable left knee radiographs. Reviewed, dictated and finalized at location . Impression: Unremarkable left knee radiographs.
== END 2023-12-30 12:04 | disposition home or self-care (01) ==
LOC: ANHIMG 12:06
PROVIDERS: PCP Family Medicine; Visit Provider Family Medicine
DX: M25.562 Pain in left knee (principal)
CPT/HCPCS: 73560

== ENCOUNTER 2024-01-28 13:45 | Outpatient (CLI) | payer BC, SELFPAY ==
--- NOTE | ~2024-01-28 | MR_ITS ---
MRI of the left knee Clinical history: Pain Technique: Coronal proton density and proton density-weighted images, sagittal proton-density and T2 fat-sat images, and axial proton-density fat-saturated images were acquired. Findings: Anterior and posterior cruciate ligaments are intact. Medial collateral ligament and the la teral collateral ligament complex are intact. Popliteus tendon is intact. Medial and lateral menisci are intact, without evidence of tear. There is grade IV chondromalacia the patellar apex with additional grade 4 chondral fissure along the lateral facet. There is subchondral reactive marrow edema involving the medial patellar pole. Remain ing articular cartilage is intact. Remaining bone marrow signals are intact. Extensor mechanism is intact. There is edema of the quadriceps fat pad. No significant joint effusion or Edwards's cyst. Impression: High-grade chondromalacia patella, as detailed above, with presumed reactive marrow edema in the medi al patellar pole. Correlate for any possibility of bone contusion from direct impaction injury. Edema of the quadriceps fat pad suggests impingement. Reviewed, dictated and finalized at location . Impression: High-grade chondromalacia patella, as detailed above, with presumed reactive ma rrow edema in the medial patellar pole. Correlate for any possibility of bone c ontusion from direct impaction injury. Edema of the quadriceps fat pad suggests impingement.
== END 2024-01-28 13:46 | disposition home or self-care (01) ==
LOC: ANHIMG 13:46
PROVIDERS: PCP Family Medicine; Visit Provider Family Medicine
DX: M22.42 Chondromalacia patellae, left knee (principal)
CPT/HCPCS: 73721

== ENCOUNTER 2024-06-23 00:37 | Day surgery (SDC) | payer BC, SELFPAY ==
[2024-06-18 15:21] VITALS: BMI 27.8
--- OUTSIDE RECORDS SUMMARY | 2024-06-23 00:41 | XMS_ITS | Referral Summary ---
Author Organization [facility] al Address [address] [place] [address] Care Team Providers Care Door To Door Lead Generation Name Role Phone Toñito Wayne MD Primary Care Provider Allergies Active Allergy Reactions Criticality Noted Date Comments Nsaids (Non-Steroidal Anti-I nflammatory Drug) Medications testosterone cypionate (DEPO-TESTOTERON E) 200 mg/mL injection INJECT 1 ML IM Q 2 WEEKS 0 8 Active HYPODERMIC NEEDLES 23 gauge x 1 needle 8 Active omeprazole (PriLOSEC) 40 mg capsule Take 1 capsule (40 mg total) by mouth daily Active hydroCHLOROthiaz mindy 12.5 mg tablet Take 1 tablet (12.5 mg total) by mouth daily 4 Active losartan (COZAAR) 100 mg tablet Take 1 tablet (100 mg total) by mouth daily 4 Active predniSONE (DELTASONE) 10 mg tablet Take 1 tablet (10 mg) by mouth 2 (two) times a day 4 Active traMADoL (ULTRAM) 50 mg tablet Take by mouth every 8 (eight) hours as needed 4 Active azithromycin (ZITHROMAX) 250 mg tabletIndication s:Lower respiratory infection (e.g., bronchitis, pneumonia, pneumonitis, pulmonitis) Take 2 tablets the first day, then 1 tablet daily for 4 days. 6 tablet 4 Active albuterol HFA (PROVENTIL HFA,VENTOLIN HFA,PROAIR HFA) 90 mcg/actuation inhalerIndicatio ns:Lower respiratory infection (e.g., bronchitis, pneumonia, pneumonitis, pulmonitis) Inhale 2 puffs every 6 (six) hours as needed for wheezing or shortness of breath 1 each 4 Active Active Problems Problem Noted Date Diagnosed Date Diarrhea of presumed infectious origin 8 Gastroesophageal reflux disease 05/31/2016 Current smoker 04/23/2016 Gastric ulcer 02/03/2016 Social History Tobacco Use Types Packs/Day Years Used Date Smoking Tobacco: Every Day Cigarettes 1 30 Smokeless Tobacco: Never Tobacco Cessation:Ready to Q uit: No; Counseling Given: Not Answered Sex and Gender Information Value Date Recorded Sex Assigned at Not on file Legal Sex Male 11:32 PM 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 Gender Identity Not on file Sexual Orientation Not on file Last Filed Vital Signs Vital Sign Reading Time Taken Comments Blood Pressure 132/84 02/06/2024 6:04 PM PERSONAL 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 Pulse 89 02/06/2024 6:04 PM PERSONAL 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 Temperature 37.2 C (99 F) 02/06/2024 6:04 PM PERSONAL 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 Respiratory Rate 18 02/06/2024 6:04 PM PERSONAL 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 Oxygen Saturation 96% 02/06/2024 6:04 PM PERSONAL 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 Inhaled Oxygen Concentration - - Weight 92.1 kg (203 lb) 02/06/2024 6:04 PM PERSONAL 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 Height 182.9 cm (6') 02/06/2024 6:04 PM PERSONAL 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 Body Mass Index 27.53 02/06/2024 6:04 PM PERSONAL 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 Plan of Treatment Not on file Insurance [facility] [employer] Care Teams Door To Door Lead Generation Relationship Specialty Start Date End Date Toñito Wayne MD [address] [facility] [address] [place] [address] PCP - General 05/18/16
--- OUTSIDE RECORDS SUMMARY | 2024-06-23 00:41 | XMS_ITS | Clinical Summary ---
Author Organization [facility] Address [address] [place] [address] Care Team Providers Care Movie Producer Name Role Phone Toñito Wayne MD Primary [...] 05/31/2016 Current smoker 04/23/2016 Gastric ulcer 02/03/2016 Surgical History Surgery Date Site/Laterality Comments COLON SURGERY 2014 CHOLECYSTECTOMY 2011 HERNIA REPAIR 2020 VASECTOMY 1998 ABDOMINAL SURGERY 2014 Medical History Medical History Date Comments GERD (gastroesophageal reflux disease) Hypertension 2019 Sleep apnea 1996 Peptic ulceration 1988 Family History Medical History Relation Name Comments Heart attack Father Julio Rosa Family hist ory of myocardial infarction - (Added by TW Conv) Heart disease Father Julio Rosa Diabetes Maternal Grandfather Julio Rosa II Family history of diabetes mellitus - Relation: Grandfather (Added by TW Conv) Diabetes Other Family history of diabetes mellitus - Relation: Grandmother (Added by TW Conv) Relation Name Status Comments Father Julio Rosa Maternal Grandfather Julio Rosa II Other Social History Tobacco Use Types Packs/Day Years Used Date Smoking Tobacco: Every Day Cigarettes 1 30 Smokeless Tobacco: Never Tobacco Cessation:Ready to Q uit: No; Counseling Given: Not Answered Sex and Gender Information Value Date Recorded Sex Assigned at Not on file Legal Sex Male 11:32 PM MANAGER PERSONAL Gender Identity Not on file Sexual Orientation Not on file Obstetrics History Last Filed Vital Signs Vital Sign Reading Time Taken Comments Blood Pressure 132/84 02/06/2024 6:04 PM MANAGER PERSONAL Pulse 89 02/06/2024 6:04 PM MANAGER PERSONAL Temperature 37.2 C (99 F) 02/06/2024 6:04 PM MANAGER PERSONAL Respiratory Rate 18 02/06/2024 6:04 PM MANAGER PERSONAL Oxygen Saturation 96% 02/06/2024 6:04 PM MANAGER PERSONAL Inhaled Oxygen Concentration - - Weight 92.1 kg (203 lb) 02/06/2024 6:04 PM MANAGER PERSONAL Height 182.9 cm (6') 02/06/2024 6:04 PM MANAGER PERSONAL Body Mass Index 27.53 02/06/2024 6:04 PM MANAGER PERSONAL Plan of Treatment Health Maintenance Due Date Last Done Comments Colon Cancer Screening-Colonoscopy 1968 Depression Screening 1968 Hepatitis C Screening 1968 Prostate Cancer Screening-PSA 1968 Hepatitis B Screening 1986 Regular Well Visit/Exam 18-64 1986 Pneumococcal vaccine <65 (1 of 2 - PCV) 08/14/1987 Lung Cancer Screening 2018 Covid-19 Vaccine (2 - season) 2023 Zoster Vaccine (2 of 2) 02/04/2024 12/10/2023 DTaP/Tdap/Td Vaccine (2 - Td or Tdap) 06/20/2033 Influenza Vaccine Completed 12/10/2023, 01/24/[address] [facility] FEDERAL Care Teams Movie Producer Relationship Specialty Start Date End Date Toñito Wayne MD [address] [facility] [address] [place] [address] PCP - General 05/18/16
[2024-06-23 07:36] VITALS: BP 131/82; PULSE 68; RESP 18; TEMP 36.1; O2SAT 99; BMI 27.0
[2024-06-23] MEDS: LACTATED RINGERS 1,000 ML 150 ML IV CONT (07:45)
--- NOTE | 2024-06-23 08:09 | WPDANESEPPF ---
Anes - Initial Pre Proc Eval Procedure: Operation Date: 06/23/24 08:30 Proposed Procedures p Screening Colonoscopy - Luis Peterson MD Date/Time: 06/23/24 08:09 Surgeon: Luis Peterson MD Pre Op Diagnosis: Encounter for screening for malignant neoplasm of Patient Data Age: 53 Gender: M Height: 1.83 m Weight: 90.4 kg Last Vital Signs Temp 36.1 C L 06/23/24 07:36 Pulse 68 06/23/24 07:36 Resp 18 06/23/24 07:36 BP 131/82 06/23/24 07:36 Pulse Ox 99 06/23/24 07:36 O2 Del Method Room Air 06/23/24 07:36 Allergies Allergy/AdvReac Type Severity Reaction Status Date / Time sumatriptan AdvReac Intermediate Chest Pain Verified 06/23/24 07:35 amlodipine AdvReac Mild Swelling Verified 06/23/24 07:35 lisinopril AdvReac Mild Fatigued Verified 06/23/24 07:35 Home Medications ?Medication ?Instructions ?Recorded ?Confirmed ?Type needle (disp) 23 gauge 23 gauge x #100 ea 05/03/22 06/08/24 Rx 1 (BD PrecisionGlide Non-Sterile) hydrochlorothiazide 12.5 mg tablet 12.5 mg PO DAILY #30 tabs 04/16/24 06/23/24 Rx losartan 100 mg tablet 100 mg PO DAILY #90 tabs 04/20/24 06/23/24 Rx testosterone cypionate 200 mg/mL 200 mg IM WEEKLY #10 mL 05/21/24 06/23/24 Rx intramuscular oil Patient hx anesthesia problems: none Family hx anesthesia problems: none Results Review: All pre-operative results and documents have been reviewed as part of the pre-operative evaluation. [facility] Past Medical History Medical History Hepatic steatosis Mixed hyperlipidemia History of stomach ulcers History of blood transfusion Ulcer MORRIS (obstructive sleep apnea) Jackson esophagus Surgical History Surgical History History of right knee surgery History of resection of stomach removed 1/3 of stomach and has coils from an aneurysm H/O hernia repair Repair of ventral incisional hernia with mesh 10/12/21 History of right inguinal hernia repair 06/11/2019 Hx of gastrostomy Hx of cholecystectomy Family History Family History Father Hypertension Family history of diabetes mellitus in first degree relative Family history of coronary artery disease Cancer Other Cerebrovascular accident Family history of heart disease in male family member before age 55 Social History Social History Social History: Single Smoking packs per day: 1 Smoking cigarettes per day: 20.0 Years smoked: 35 Smoking pack-years: 35.00 Smoking status: Current every day smoker Tobacco type: cigarettes Second hand tobacco smoke exposure: Yes Alcohol intake: never Substance use: never Substance use type: does not use Do You Feel Safe in your Home?: Yes Lack of Transportation: No Lack of Food: Never True Current Housing: I Have Housing Concerned About Future Housing: No Difficulty Paying Gas/Electric Bills: No Difficulty Paying for Meds: No Currently Unemployed: No Education: Associate Degree Difficulty w/ Childcare or Family Care: No Living arrangements: with family Occupation/Education: retired Additional occupation/education comments: [employer]. occasionally works Gender identity (if verbalized by the patient): Male Sexual Orientation (if Verbalized by the Patient): Straight or Heterosexual Spiritual care concerns: No Anes - Eval Final PreProcedure Day of Procedure 06/23/24 08:09 Patient weight: overweight Heart: regular rate and rhythm Lungs: clear to auscultation Airway: Mallampati scale class II Neurological: alert and oriented Last oral intake: >/= 8 hours ASA classification: III Emergent: no Anesthetic plan: proceed Anesthesia type and monitoring: general GIVS and standard monitoring Results Review: All pre-operative results and documents have been reviewed as part of the pre-operative evaluation. Informed Consent: The patient's anesthetic plan and its attendant risks and benefits were discussed with the patient/family/POA. Questions were solicited and answers provided to the satisfaction of the patient/family/POA.
--- NOTE | 2024-06-23 08:30 | PM.HPGS ---
History of Present Illness History of Present Illness Consent: Risks, benefits, and alternatives have been discussed and questions answered. Patient agrees to proceed with procedure. Chief complaint: Encounter for screening for malignant neoplasm of Narrative: Darren Rosa is a 53 year old male here for screning colonoscopy, last one 5 years ago Review of Systems Review of Systems: All systems reviewed & are unremarkable except as noted in HPI and below PMFSH Past Medical History Medical History (Updated 06/23/24 @ 08:31 by Luis Peterson MD) Colon cancer screening Hepatic steatosis Mixed hyperlipidemia History of stomach ulcers History of blood transfusion Ulcer MORRIS (obstructive sleep apnea) Jackson esophagus Surgical History Surgical History History of right knee surgery History of resection of stomach removed 1/3 of stomach and has coils from an aneurysm H/O hernia repair Repair of ventral incisional hernia with mesh 10/12/21 History of right inguinal hernia repair 06/11/2019 Hx of gastrostomy Hx of cholecystectomy Family History Family History Father Hypertension Family history of diabetes mellitus in first degree relative Family history of coronary artery disease Cancer Other Cerebrovascular accident Family history of heart disease in male family member before age 55 Social History Social History Social History: Single Smoking packs per day: 1 Smoking cigarettes per day: 20.0 Years smoked: 35 Smoking pack-years: 35.00 Smoking status: Current every day smoker Tobacco type: cigarettes Second hand tobacco smoke exposure: Yes Alcohol intake: never Substance use: never Substance use type: does not use Do You Feel Safe in your Home?: Yes Lack of Transportation: No Lack of Food: Never True Current Housing: I Have Housing Concerned About Future Housing: No Difficulty Paying Gas/Electric Bills: No Difficulty Paying for Meds: No Currently Unemployed: No Education: Associate Degree Difficulty w/ Childcare or Family Care: No Living arrangements: with family Occupation/Education: retired Additional occupation/education comments: [employer]. occasionally works Gender identity (if verbalized by the patient): Male Sexual Orientation (if Verbalized by the Patient): Straight or Heterosexual Spiritual care concerns: No Meds Home Medications and Allergies Home Medications ?Medication ?Instructions ?Recorded ?Confirmed ?Type needle (disp) 23 gauge 23 gauge x #100 ea 05/03/22 06/08/24 Rx 1 (BD PrecisionGlide Non-Sterile) hydrochlorothiazide 12.5 mg tablet 12.5 mg PO DAILY #30 tabs 04/16/24 06/23/24 Rx losartan 100 mg tablet 100 mg PO DAILY #90 tabs 04/20/24 06/23/24 Rx testosterone cypionate 200 mg/mL 200 mg IM WEEKLY #10 mL 05/21/24 06/23/24 Rx intramuscular oil Allergies Allergy/AdvReac Type Severity Reaction Status Date / Time sumatriptan AdvReac Intermediate Chest Pain Verified 06/23/24 07:35 amlodipine AdvReac Mild Swelling Verified 06/23/24 07:35 lisinopril AdvReac Mild Fatigued Verified 06/23/24 07:35 Vital Signs Vital Signs - 24 hr 06/23/24 07:36 Temperature 97 F L Pulse Rate 68 Respiratory Rate 18 Blood Pressure 131/82 Pulse Oximetry 99 Oxygen Delivery Room Air Exam Const: General: comfortable and no acute distress HENMT: Face/Nose/Sinus: Normal nares present Eyes: General: appearance normal, both eyes and all related structures Neck: Neck: no JVD Resp: Auscultation: clear to auscultation bilaterally Cardio: Rate: regular rate Rhythm: regular rhythm GI: Inspection: non-distended GI Palp: Yes Soft to palpation Skin: General skin exam: normal color Neuro: General: gait normal Speech: normal speech Extrem: General: normal to inspection Psych: Mental Status: mental status grossly normal Assessment and Plan Assessment and plan (1) Colon cancer screening: Code(s): Z12.11 - Encounter for screening for malignant neoplasm of colon Status: Acute Assessment and Plan: colonoscopy
[2024-06-23 08:43] VITALS: BP 98/60; PULSE 67; RESP 15; O2SAT 99
[2024-06-23 08:53] VITALS: BP 99/64; PULSE 60; RESP 17; O2SAT 99
[2024-06-23 09:03] VITALS: BP 127/80; PULSE 66; RESP 18; O2SAT 100
== END 2024-06-23 09:10 | disposition home or self-care (01) ==
PROVIDERS: PCP Family Medicine; Referring Provider Family Medicine; Visit Provider Internal Medicine Gastroenterology
PROC: 0DJD8ZZ Inspection of Lower Intestinal Tract, Via Natural or Artificial Opening Endoscopic (ICD-10-PCS; CPT 45378; principal; 2024-06-23 08:30)
DX: Z12.11 Encounter for screening for malignant neoplasm of colon (principal); K64.8 Other hemorrhoids; E78.2 Mixed hyperlipidemia; G47.33 Obstructive sleep apnea (adult) (pediatric); F17.210 Nicotine dependence, cigarettes, uncomplicated; Z98.890 Other specified postprocedural states; Z90.49 Acquired absence of other specified parts of digestive tract; Z93.1 Gastrostomy status; Z87.11 Personal history of peptic ulcer disease; Z87.19 Personal history of other diseases of the digestive system; Z80.9 Family history of malignant neoplasm, unspecified; Z82.49 Family history of ischemic heart disease and other diseases of the circulatory system
CPT/HCPCS: 45378; J2003; J2704; J7120

== ENCOUNTER 2024-12-18 13:17 | Outpatient (CLI) | payer BC, SELFPAY ==
--- OUTSIDE RECORDS SUMMARY | 2024-12-18 13:20 | XMS_ITS | Clinical Summary ---
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 Gender Identity Not on file Sexual Orientation Not on file Obstetrics History Last Filed Vital Signs Vital Sign Reading Time Taken Comments Blood Pressure 132/84 02/06/2024 6:04 PM COMMERCIAL UNDERWRITER Pulse 89 02/06/2024 6:04 PM COMMERCIAL UNDERWRITER Temperature 37.2 C (99 F) 02/06/2024 6:04 PM COMMERCIAL UNDERWRITER Respiratory Rate 18 02/06/2024 6:04 PM COMMERCIAL UNDERWRITER Oxygen Saturation 96% 02/06/2024 6:04 PM COMMERCIAL UNDERWRITER Inhaled Oxygen Concentration - - Weight 92.1 kg (203 lb) 02/06/2024 6:04 PM COMMERCIAL UNDERWRITER Height 182.9 cm (6') 02/06/2024 6:04 PM COMMERCIAL UNDERWRITER Body Mass Index 27.53 02/06/2024 6:04 PM COMMERCIAL UNDERWRITER Plan of Treatment Health Maintenance Due Date Last Done Comments Colon Cancer Screening-Colonoscopy 1968 Depression Screening 1968 Hepatitis C Screening 1968 Prostate Cancer Screening-PSA 1968 Hepatitis B Screening 1986 Regular Well Visit/Exam 18-64 1986 Pneumococcal vaccine <65 (1 of 2 - PCV) 08/14/1987 Lung Cancer Screening 2018 Zoster Vaccine (2 of 2) 02/04/2024 12/10/2023 Covid-19 Vaccine (2 - 2024- season) 2024 Influenza Vaccine (#1) 2024 12/10/2023, 2015 DTaP/Tdap/Td Vaccine (2 - Td or Tdap) 06/20/2033 Insurance [facility] Care Teams Workers Compensation Claims Assistant Relationship Specialty Start Date End Date Toñito Wayne MD [address] [facility] [address] [place] [address] PCP - General 05/18/16
[2024-12-18 14:51] LABS: INR 0.9; Prothrombin Time 12.6 Seconds (11.1-14.7)
[2024-12-18 15:04] LABS: Hepatitis B Surface Antigen Negative (Negative)
[2024-12-18 15:10] LABS: HAV RESULT Negative (Negative); Hepatitis B Core IgM Result Negative (Negative)
[2024-12-18 15:32] LABS: Ferritin 52.30 ng/mL (11.1-264)
[2024-12-18 17:24] LABS: Iron 124 ug/dL (49-181); Percent Iron Saturation 29 % (20-50)
[2024-12-19 07:09] LABS: GGT 80 IU/L (0-65)
[2024-12-22 08:08] LABS: ANA by IFA Rfx Titer/Pattern Negative (.)
== END 2024-12-18 13:18 | disposition home or self-care (01) ==
LOC: ANHLAB 13:18
PROVIDERS: PCP Family Medicine; Visit Provider Nurse Practitioner Family
DX: K76.0 Fatty (change of) liver, not elsewhere classified (principal); R74.01 Elevation of levels of liver transaminase levels
CPT/HCPCS: 36415; 80074; 82103; 82390; 82728; 82977; 83540; 83550; 85610; 86015; 86038; 86381